=== PATIENT | female | born 1955 | race Caucasian/White ===

== ENCOUNTER → 2019-04-05 | Outpatient (CLI) | payer OTHER, MEDICAID ==
--- NOTE | 2019-04-05 15:08 | REP ---
Chest two views HISTORY: Bronchitis Comparison: None The lungs are clear. The heart is normal in size. The pulmonary vasculature is normal in appearance. The bony structure is intact. IMPRESSION: No acute disease. Electronically Signed by Gurpreet Britt MD 04/05/2019 02:59 P
== END ==
LOC: M LRY 14:29
PROVIDERS: ATTEND Physician Assistant
DX: J40 Bronchitis, not specified as acute or chronic (principal)

== ENCOUNTER 2022-05-02 15:46 | Observation (INO) | payer MEDICAID, OTHER ==
[~2022-05-02] VITALS: Ht 162.6 cm; Wt 55.1 kg
[2022-05-02 17:23] LABS: ALBUMIN 3.8 GM/DL (3.2-5.2); ALT/SGPT 25 U/L (12-78); BILIRUBIN,DIRECT < 0.1 MG/DL (0.0-0.2); BILIRUBIN,TOTAL 0.4 MG/DL (0.2-1.0); BLOOD UREA NITROGEN 17 MG/DL (7-18); CALCIUM LEVEL 9.3 MG/DL (8.8-10.2); CARBON DIOXIDE LEVEL 31 MEQ/L (21-32); CHLORIDE LEVEL 106 MEQ/L (98-107); CREATININE FOR GFR 1.02 MG/DL (0.55-1.30); GLOMERULAR FILTRATION RATE 57.7 (>45); GLUCOSE, FASTING 137 MG/DL (70-100); SODIUM LEVEL 143 MEQ/L (136-145); TOTAL PROTEIN 6.9 GM/DL (6.4-8.2)
[2022-05-02 17:33] LABS: CK-MB VALUE MASS < 1.0 NG/ML (<3.6); CPK CREATINE PHOSPHOKINASE 68 U/L (26-192); MB/CK RELATIVE INDEX 1.47 (< OR =4)
[2022-05-02 17:39] LABS: INR 0.9; PARTIAL THROMBOPLASTIN TIME 29.2 SECONDS (25.9-37.0); PROTHROMBIN TIME 12.5 SECONDS (12.7-14.5)
[2022-05-02 17:48] LABS: BASO % 0.6 % (0.0-1.0); EOS # 0.2 10^3/uL (0.0-0.5); EOS % 2.3 % (0.0-3.0); HEMATOCRIT 45.4 % (36.0-47.0); HEMOGLOBIN 14.9 g/dl (12.0-15.5); LYMPH % 28.7 % (24.0-44.0); MEAN CORPUSCULAR HEMOGLOBIN 30.3 pg (27.0-33.0); MEAN CORPUSCULAR HGB CONC 32.8 g/dl (32.0-36.5); MEAN CORPUSCULAR VOLUME 92.5 fl (80.0-96.0); MONO # 0.7 10^3/uL (0.0-0.8); NEUTROPHILS % 58.1 % (36.0-66.0); PLATELET COUNT, AUTOMATED 146 10^3/uL (150-450); RED BLOOD COUNT 4.91 10^6/uL (4.00-5.40); WHITE BLOOD COUNT 6.9 10^3/uL (4.0-10.0)
[2022-05-02 18:17] LABS: RSV AMPLIFICATION NEGATIVE (NEGATIVE)
[2022-05-02 18:30] LABS: CK-MB VALUE MASS 1.3 NG/ML (<3.6); MB/CK RELATIVE INDEX 1.23 (< OR =4)
[2022-05-02] MEDS ORDERED: GLUCOSE 4GM CHEW TABLET PO PRN (19:25)
[2022-05-02] MEDS ORDERED: MAALOX 30 ML SUSP *UDC PO PRN (19:25)
[2022-05-02] MEDS ORDERED: GLUCAGON INJ 1MG VIAL SC PRN (19:25)
[2022-05-02] MEDS ORDERED: DEXTROSE 50% 50 ML SYRINGE IV PRN (19:25)
[2022-05-02] MEDS ORDERED: ACETAMINOPHEN TAB 650MG DOSE (2X325MG) PO PRN (19:25)
[2022-05-02] MEDS ORDERED: MOM 30ML SUSPENSION UDC PO PRN (19:25)
[2022-05-02] MEDS ORDERED: NICOTINE 21MG/24HR 1 EA TRANSDERMAL TD PRN (19:30)
[2022-05-02] MEDS ORDERED: PATIENT COMMENT (20:34)
[2022-05-02] MEDS ORDERED: LISI10TA22 PO (20:34)
[2022-05-02] MEDS ORDERED: IBAN150T6 PO (20:34)
[2022-05-02] MEDS ORDERED: ATOR40TA75 PO (20:34)
[2022-05-02] MEDS ORDERED: OMEP-173 PO (20:34)
[2022-05-02] MEDS ORDERED: METF500T13 PO (20:34)
[2022-05-02] MEDS ORDERED: HOME MED LIST COMPLETE! XX SCH (20:35)
[2022-05-02] MEDS ORDERED: ATORVASTATIN 20 MG TAB PO SCH (21:00)
[2022-05-02] MEDS: INSULIN LISPRO (NovoLOG) PER UNIT SC SCH (21:00)
[2022-05-03 00:38] VITALS: BP 137/78
[2022-05-03 06:00] VITALS: BP 133/77
[2022-05-03 06:51] LABS: HEMATOCRIT 44.6 % (36.0-47.0); HEMOGLOBIN 14.6 g/dl (12.0-15.5); MEAN CORPUSCULAR HEMOGLOBIN 30.3 pg (27.0-33.0); MEAN CORPUSCULAR HGB CONC 32.7 g/dl (32.0-36.5); MEAN CORPUSCULAR VOLUME 92.5 fl (80.0-96.0); PLATELET COUNT, AUTOMATED 124 10^3/uL (150-450); RED BLOOD COUNT 4.82 10^6/uL (4.00-5.40); WHITE BLOOD COUNT 8.1 10^3/uL (4.0-10.0)
[2022-05-03 07:17] LABS: BLOOD UREA NITROGEN 15 MG/DL (7-18); CALCIUM LEVEL 8.9 MG/DL (8.8-10.2); CARBON DIOXIDE LEVEL 30 MEQ/L (21-32); CHLORIDE LEVEL 107 MEQ/L (98-107); CHOLESTEROL LEVEL 200 MG/DL (<200); CHOLESTEROL RISK RATIO 2.666 (<5); CREATININE FOR GFR 0.85 MG/DL (0.55-1.30); GLOMERULAR FILTRATION RATE > 60.0 (>45); GLUCOSE, FASTING 105 MG/DL (70-100); HDL CHOLESTEROL 75 MG/DL (>40); LDL CHOLESTEROL 98 MG/DL (<100); MAGNESIUM LEVEL 1.7 MG/DL (1.8-2.4); NON-HDL-C 125 MG/DL; POTASSIUM SERUM 3.9 MEQ/L (3.5-5.1); SODIUM LEVEL 142 MEQ/L (136-145); TRIGLYCERIDES LEVEL 136 MG/DL (<150)
[2022-05-03 07:24] LABS: HEMOGLOBIN A1c 6.1 %
[2022-05-03 07:30] LABS: CK-MB VALUE MASS 1.3 NG/ML (<3.6); MB/CK RELATIVE INDEX 2.28 (< OR =4)
[2022-05-03] MEDS: INSULIN LISPRO (NovoLOG) PER UNIT SC SCH ×4 (07:30→20:54)
[2022-05-03] MEDS ORDERED: OMEPRAZOLE 20MG CAP PO SCH (09:00)
[2022-05-03] MEDS: ASPIRIN 81 MG CHEW TABLET PO SCH (09:19)
[2022-05-03] MEDS: CLOPIDOGREL 75 MG TAB PO SCH (11:16)
[2022-05-03 12:51] LABS: CK-MB VALUE MASS < 1.0 NG/ML (<3.6); CPK CREATINE PHOSPHOKINASE 55 U/L (26-192); MB/CK RELATIVE INDEX 1.82 (< OR =4)
[2022-05-03 14:00] VITALS: BP 118/67
[2022-05-03] MEDS ORDERED: MAG SULF 1GM/100ML (MAG RUN) 1 GM in IV 1 EA IV ONE (15:55)
[2022-05-03] MEDS ORDERED: ATORVASTATIN 20 MG TAB PO SCH (21:00)
[2022-05-03 22:00] VITALS: BP 116/68
[2022-05-04 06:00] VITALS: BP 122/68
[2022-05-04 07:07] LABS: HEMATOCRIT 41.1 % (36.0-47.0); MEAN CORPUSCULAR HEMOGLOBIN 31.3 pg (27.0-33.0); MEAN CORPUSCULAR HGB CONC 34.1 g/dl (32.0-36.5); MEAN CORPUSCULAR VOLUME 91.7 fl (80.0-96.0); PLATELET COUNT, AUTOMATED 114 10^3/uL (150-450); RED BLOOD COUNT 4.48 10^6/uL (4.00-5.40); WHITE BLOOD COUNT 7.7 10^3/uL (4.0-10.0)
[2022-05-04 07:30] LABS: BLOOD UREA NITROGEN 17 MG/DL (7-18); CALCIUM LEVEL 8.7 MG/DL (8.8-10.2); CARBON DIOXIDE LEVEL 27 MEQ/L (21-32); CHLORIDE LEVEL 109 MEQ/L (98-107); CREATININE FOR GFR 0.81 MG/DL (0.55-1.30); GLOMERULAR FILTRATION RATE > 60.0 (>45); GLUCOSE, FASTING 108 MG/DL (70-100); POTASSIUM SERUM 3.9 MEQ/L (3.5-5.1); SODIUM LEVEL 143 MEQ/L (136-145)
[2022-05-04 07:35] LABS: CK-MB VALUE MASS < 1.0 NG/ML (<3.6); CPK CREATINE PHOSPHOKINASE 58 U/L (26-192); MB/CK RELATIVE INDEX 1.72 (< OR =4)
[2022-05-04] MEDS: CLOPIDOGREL 75 MG TAB PO SCH (08:38)
[2022-05-04] MEDS: INSULIN LISPRO (NovoLOG) PER UNIT SC SCH (08:38)
[2022-05-04] MEDS: ASPIRIN 81 MG CHEW TABLET PO SCH (08:38)
[2022-05-04 08:39] VITALS: BP 126/70
[2022-05-04] MEDS ORDERED: PANTOPRAZOLE 40MG TAB (PROTONIX) PO SCH (09:00)
[2022-05-04] MEDS ORDERED: ASPI81CH8 PO (09:02)
[2022-05-04] MEDS ORDERED: CLOP75TA2 PO (09:02)
[2022-05-04] MEDS ORDERED: ATOR1TAB21 PO (09:02)
== END 2022-05-04 11:52 | disposition home health service (06) ==
LOC: M ED 15:46 → M ED INP 19:23 → ENRESERV 22:06 → M MSPAV 05-03 00:30
PROVIDERS: ADMIT Internal Medicine; ATTEND Internal Medicine
DX: I63.512 Cerebral infarction due to unspecified occlusion or stenosis of left middle cerebral artery (principal); R77.8 Other specified abnormalities of plasma proteins; I34.2 Nonrheumatic mitral (valve) stenosis; E11.9 Type 2 diabetes mellitus without complications; E78.5 Hyperlipidemia, unspecified; I10 Essential (primary) hypertension; K21.9 Gastro-esophageal reflux disease without esophagitis; Z86.73 Personal history of transient ischemic attack (TIA), and cerebral infarction without residual deficits; F17.210 Nicotine dependence, cigarettes, uncomplicated; Z79.899 Other long term (current) drug therapy; Z79.84 Long term (current) use of oral hypoglycemic drugs; Z82.49 Family history of ischemic heart disease and other diseases of the circulatory system
CPT/HCPCS: 36415; 70450; 70544; 70551; 71045; 80048; 80061; 80076; 82550; 82553; 83036; 83735; 85025; 85027; 85610; 85730; 86850; 86900; 86901; 87631; 92526; 92610; 93005; 93041; 93306; 93880; 94760; 97161; 99285; J1815; J3475

== ENCOUNTER 2023-03-24 12:47 | Inpatient (IN) | payer MEDICARE, MEDICAID ==
[~2023-03-24] VITALS: Ht 165.1 cm; Wt 61.8 kg
[~2023-03-24 12:47] MED LIST: ASPI81CH8 PO; ATOR1TAB21 PO; ATOR40TA75 PO; CLOP75TA2 PO; IBAN150T6 PO; LISI10TA22 PO; METF500T13 PO; OMEP-173 PO; PATIENT COMMENT
[2023-03-24 13:40] LABS: HEMATOCRIT 43.9 % (36.0-47.0); HEMOGLOBIN 14.8 g/dl (12.0-15.5); MEAN CORPUSCULAR HEMOGLOBIN 30.5 pg (27.0-33.0); MEAN CORPUSCULAR HGB CONC 33.7 g/dl (32.0-36.5); MEAN CORPUSCULAR VOLUME 90.3 fl (80.0-96.0); PLATELET COUNT, AUTOMATED 101 10^3/uL (150-450); RED BLOOD COUNT 4.86 10^6/uL (4.00-5.40); WHITE BLOOD COUNT 7.7 10^3/uL (4.0-10.0)
[2023-03-24 14:12] LABS: BLOOD UREA NITROGEN 12 MG/DL (9-23); CALCIUM LEVEL 9.5 MG/DL (8.3-10.6); CARBON DIOXIDE LEVEL 27 MMOL/L (20-31); CHLORIDE LEVEL 103 MMOL/L (98-107); CREATININE FOR GFR 0.75 MG/DL (0.55-1.30); GLOMERULAR FILTRATION RATE > 60.0 (>45); GLUCOSE, FASTING 119 MG/DL (74-106); POTASSIUM SERUM 3.8 MMOL/L (3.5-5.1); SODIUM LEVEL 140 MMOL/L (136-145)
[2023-03-24] MEDS ORDERED: ISOVUE-370 76% 100ML VIAL As Ordered ONE (16:21)
[2023-03-24 16:32] LABS: INR 0.91; PROTHROMBIN TIME 12.5 SECONDS (12.5-14.5)
[2023-03-24 16:33] LABS: PARTIAL THROMBOPLASTIN TIME 36.5 SECONDS (24.8-34.2)
[2023-03-24] MEDS ORDERED: CLOPIDOGREL 75 MG TAB PO ONE (16:55)
[2023-03-24 17:43] VITALS: BP 115/55; TEMP 97; O2SAT 93
[2023-03-24] MEDS ORDERED: ATOR80TA59 PO (17:44)
[2023-03-24] MEDS ORDERED: ASPI81TA26 PO (17:44)
[2023-03-24] MEDS ORDERED: NIAC500T64 PO (17:44)
[2023-03-24] MEDS ORDERED: PRIL20TA2 PO (17:44)
[2023-03-24] MEDS ORDERED: CALTTAB6 PO (17:48)
[2023-03-24] MEDS ORDERED: HOME MED LIST COMPLETE! XX SCH (17:50)
[2023-03-24] MEDS ORDERED: NS 1,000 ML IV ONE (18:15)
[2023-03-24 20:00] VITALS: BP 120/61; TEMP 96.3; O2SAT 96
[2023-03-24] MEDS: ASPIRIN 81MG ENTERIC TABLET PO SCH (21:19)
[2023-03-24] MEDS: ATORVASTATIN 20 MG TAB PO SCH (21:19)
[2023-03-24 23:48] VITALS: BP 113/59; TEMP 96.8; O2SAT 95
[2023-03-25] VITALS (8 sets, daily range): BP systolic 110–138; BP diastolic 56–68; TEMP 96.5–97.7; O2SAT 92–95
[2023-03-25] MEDS ORDERED: NS 500 ML IV ONE ×2 (05:00→12:25)
[2023-03-25 06:07] LABS: BASO % 0.4 % (0.0-1.0); EOS # 0.1 10^3/uL (0.0-0.5); EOS % 0.7 % (0.0-3.0); HEMATOCRIT 40.9 % (36.0-47.0); HEMOGLOBIN 13.8 g/dl (12.0-15.5); LYMPH # 1.6 10^3/uL (1.5-5.0); LYMPH % 19.3 % (24.0-44.0); MEAN CORPUSCULAR HEMOGLOBIN 31.1 pg (27.0-33.0); MEAN CORPUSCULAR HGB CONC 33.7 g/dl (32.0-36.5); MEAN CORPUSCULAR VOLUME 92.1 fl (80.0-96.0); MONO # 0.7 10^3/uL (0.0-0.8); MONO % 7.8 % (2.0-8.0); NEUTROPHILS % 71.4 % (36.0-66.0); PLATELET COUNT, AUTOMATED 102 10^3/uL (150-450); RED BLOOD COUNT 4.44 10^6/uL (4.00-5.40); WHITE BLOOD COUNT 8.4 10^3/uL (4.0-10.0)
[2023-03-25 06:25] LABS: BLOOD UREA NITROGEN 9 MG/DL (9-23); CALCIUM LEVEL 8.8 MG/DL (8.3-10.6); CARBON DIOXIDE LEVEL 26 MMOL/L (20-31); CHLORIDE LEVEL 106 MMOL/L (98-107); CREATININE FOR GFR 0.78 MG/DL (0.55-1.30); GLOMERULAR FILTRATION RATE > 60.0 (>45); GLUCOSE, FASTING 98 MG/DL (74-106); POTASSIUM SERUM 3.9 MMOL/L (3.5-5.1); SODIUM LEVEL 141 MMOL/L (136-145)
[2023-03-25] MEDS: CLOPIDOGREL 75 MG TAB PO SCH (08:05)
[2023-03-25] MEDS: MIDODRINE 5 MG TAB PO SCH ×2 (12:42→16:54)
[2023-03-25] MEDS: NS 1,000 ML IV SCH (16:55)
[2023-03-25] MEDS: ASPIRIN 81MG ENTERIC TABLET PO SCH (21:46)
[2023-03-25] MEDS: ATORVASTATIN 20 MG TAB PO SCH (21:46)
[2023-03-26] VITALS (7 sets, daily range): BP systolic 105–137; BP diastolic 53–88; TEMP 96.8–97.5; O2SAT 94–98
[2023-03-26] MEDS: NS 1,000 ML IV SCH ×2 (03:04→12:00)
[2023-03-26 06:02] LABS: BASO % 0.4 % (0.0-1.0); EOS # 0.1 10^3/uL (0.0-0.5); EOS % 1.1 % (0.0-3.0); HEMATOCRIT 40.6 % (36.0-47.0); HEMOGLOBIN 13.6 g/dl (12.0-15.5); LYMPH # 1.8 10^3/uL (1.5-5.0); LYMPH % 25.4 % (24.0-44.0); MEAN CORPUSCULAR HEMOGLOBIN 30.8 pg (27.0-33.0); MEAN CORPUSCULAR HGB CONC 33.5 g/dl (32.0-36.5); MEAN CORPUSCULAR VOLUME 91.9 fl (80.0-96.0); MONO # 0.7 10^3/uL (0.0-0.8); MONO % 10.1 % (2.0-8.0); NEUTROPHILS # 4.5 10^3/uL (1.5-8.5); NEUTROPHILS % 62.7 % (36.0-66.0); RED BLOOD COUNT 4.42 10^6/uL (4.00-5.40); WHITE BLOOD COUNT 7.1 10^3/uL (4.0-10.0)
[2023-03-26 06:18] LABS: BLOOD UREA NITROGEN 8 MG/DL (9-23); CALCIUM LEVEL 8.1 MG/DL (8.3-10.6); CARBON DIOXIDE LEVEL 27 MMOL/L (20-31); CHLORIDE LEVEL 109 MMOL/L (98-107); CREATININE FOR GFR 0.85 MG/DL (0.55-1.30); GLOMERULAR FILTRATION RATE > 60.0 (>45); GLUCOSE, FASTING 104 MG/DL (74-106); POTASSIUM SERUM 3.8 MMOL/L (3.5-5.1); SODIUM LEVEL 143 MMOL/L (136-145)
[2023-03-26 06:44] LABS: PLATELET COUNT, AUTOMATED 97 10^3/uL (150-450)
[2023-03-26] MEDS: CLOPIDOGREL 75 MG TAB PO SCH (08:26)
[2023-03-26] MEDS: MIDODRINE 5 MG TAB PO SCH ×3 (08:26→16:00)
[2023-03-26] MEDS: ATORVASTATIN 20 MG TAB PO SCH (22:52)
[2023-03-26] MEDS: ASPIRIN 81MG ENTERIC TABLET PO SCH (22:52)
[2023-03-27] VITALS (7 sets, daily range): BP systolic 129–154; BP diastolic 67–82; TEMP 97.2–97.7; O2SAT 93–98
[2023-03-27] MEDS: NS 1,000 ML IV SCH ×2 (02:40→09:07)
[2023-03-27 04:51] LABS: BASO % 0.4 % (0.0-1.0); EOS # 0.3 10^3/uL (0.0-0.5); EOS % 3.3 % (0.0-3.0); HEMATOCRIT 40.4 % (36.0-47.0); HEMOGLOBIN 13.7 g/dl (12.0-15.5); LYMPH # 2.2 10^3/uL (1.5-5.0); LYMPH % 26.1 % (24.0-44.0); MEAN CORPUSCULAR HEMOGLOBIN 30.8 pg (27.0-33.0); MEAN CORPUSCULAR HGB CONC 33.9 g/dl (32.0-36.5); MEAN CORPUSCULAR VOLUME 90.8 fl (80.0-96.0); MONO # 0.9 10^3/uL (0.0-0.8); MONO % 10.5 % (2.0-8.0); NEUTROPHILS # 5.1 10^3/uL (1.5-8.5); NEUTROPHILS % 59.5 % (36.0-66.0); RED BLOOD COUNT 4.45 10^6/uL (4.00-5.40); WHITE BLOOD COUNT 8.5 10^3/uL (4.0-10.0)
[2023-03-27 05:19] LABS: PLATELET COUNT, AUTOMATED 97 10^3/uL (150-450)
[2023-03-27 05:26] LABS: BLOOD UREA NITROGEN 9 MG/DL (9-23); CALCIUM LEVEL 8.4 MG/DL (8.3-10.6); CARBON DIOXIDE LEVEL 28 MMOL/L (20-31); CHLORIDE LEVEL 108 MMOL/L (98-107); CREATININE FOR GFR 0.75 MG/DL (0.55-1.30); GLOMERULAR FILTRATION RATE > 60.0 (>45); GLUCOSE, FASTING 104 MG/DL (74-106); SODIUM LEVEL 143 MMOL/L (136-145)
[2023-03-27 05:27] LABS: COLLAGEN EPINEPHRINE 127 SECONDS (74-162)
[2023-03-27] MEDS: MIDODRINE 5 MG TAB PO SCH ×3 (08:00→16:00)
[2023-03-27 08:05] LABS: CHOLESTEROL LEVEL 152 MG/DL (<200); CHOLESTEROL RISK RATIO 2.34 (<5); HDL CHOLESTEROL 64.9 MG/DL (>40); LDL CHOLESTEROL 68.5 MG/DL (<100); NON-HDL-C 87.1 MG/DL; TRIGLYCERIDES LEVEL 93 MG/DL (<150)
[2023-03-27] MEDS: CLOPIDOGREL 75 MG TAB PO SCH (09:03)
[2023-03-27] MEDS: ATORVASTATIN 20 MG TAB PO SCH (20:16)
[2023-03-27] MEDS: ASPIRIN 81MG ENTERIC TABLET PO SCH (20:16)
[2023-03-28 05:43] VITALS: BP 137/83; TEMP 97.5; O2SAT 94
[2023-03-28 06:09] LABS: BASO % 0.2 % (0.0-1.0); EOS # 0.3 10^3/uL (0.0-0.5); HEMATOCRIT 40.8 % (36.0-47.0); HEMOGLOBIN 13.3 g/dl (12.0-15.5); LYMPH # 1.9 10^3/uL (1.5-5.0); LYMPH % 19.5 % (24.0-44.0); MEAN CORPUSCULAR HEMOGLOBIN 30.1 pg (27.0-33.0); MEAN CORPUSCULAR HGB CONC 32.6 g/dl (32.0-36.5); MEAN CORPUSCULAR VOLUME 92.3 fl (80.0-96.0); MONO # 0.9 10^3/uL (0.0-0.8); MONO % 9.7 % (2.0-8.0); NEUTROPHILS # 6.5 10^3/uL (1.5-8.5); NEUTROPHILS % 67.3 % (36.0-66.0); PLATELET COUNT, AUTOMATED 114 10^3/uL (150-450); RED BLOOD COUNT 4.42 10^6/uL (4.00-5.40); WHITE BLOOD COUNT 9.7 10^3/uL (4.0-10.0)
[2023-03-28 06:32] LABS: BLOOD UREA NITROGEN 9 MG/DL (9-23); CALCIUM LEVEL 8.9 MG/DL (8.3-10.6); CARBON DIOXIDE LEVEL 30 MMOL/L (20-31); CHLORIDE LEVEL 106 MMOL/L (98-107); CREATININE FOR GFR 0.76 MG/DL (0.55-1.30); GLOMERULAR FILTRATION RATE > 60.0 (>45); GLUCOSE, FASTING 98 MG/DL (74-106); POTASSIUM SERUM 3.8 MMOL/L (3.5-5.1); SODIUM LEVEL 143 MMOL/L (136-145)
[2023-03-28 06:34] LABS: FOLATE 13.58 NG/ML (>5.4)
[2023-03-28 07:06] LABS: HEPATITIS C VIRUS ABY INDEX 0.1 INDEX (<0.8)
[2023-03-28] MEDS: CYANOCOBALAMIN 1,000MCG/ML 1ML VIAL IM SCH (10:19)
[2023-03-28] MEDS: CLOPIDOGREL 75 MG TAB PO SCH (10:19)
[2023-03-28 14:00] VITALS: BP 101/76; TEMP 98.1; O2SAT 96
[2023-03-28] MEDS: ASPIRIN 81MG ENTERIC TABLET PO SCH (20:21)
[2023-03-28] MEDS: ATORVASTATIN 20 MG TAB PO SCH (20:21)
[2023-03-29 06:00] VITALS: BP 106/68; TEMP 97.9; O2SAT 93
[2023-03-29 06:26] LABS: BASO % 0.5 % (0.0-1.0); EOS # 0.3 10^3/uL (0.0-0.5); EOS % 4.5 % (0.0-3.0); HEMATOCRIT 40.1 % (36.0-47.0); HEMOGLOBIN 13.5 g/dl (12.0-15.5); LYMPH % 26.9 % (24.0-44.0); MEAN CORPUSCULAR HEMOGLOBIN 30.4 pg (27.0-33.0); MEAN CORPUSCULAR HGB CONC 33.7 g/dl (32.0-36.5); MEAN CORPUSCULAR VOLUME 90.3 fl (80.0-96.0); MONO # 0.9 10^3/uL (0.0-0.8); MONO % 12.3 % (2.0-8.0); NEUTROPHILS # 4.1 10^3/uL (1.5-8.5); NEUTROPHILS % 55.4 % (36.0-66.0); PLATELET COUNT, AUTOMATED 111 10^3/uL (150-450); RED BLOOD COUNT 4.44 10^6/uL (4.00-5.40); WHITE BLOOD COUNT 7.3 10^3/uL (4.0-10.0)
[2023-03-29 06:56] LABS: BLOOD UREA NITROGEN 12 MG/DL (9-23); CALCIUM LEVEL 8.9 MG/DL (8.3-10.6); CARBON DIOXIDE LEVEL 29 MMOL/L (20-31); CHLORIDE LEVEL 105 MMOL/L (98-107); CREATININE FOR GFR 0.69 MG/DL (0.55-1.30); GLOMERULAR FILTRATION RATE > 60.0 (>45); GLUCOSE, FASTING 101 MG/DL (74-106); POTASSIUM SERUM 3.9 MMOL/L (3.5-5.1); SODIUM LEVEL 140 MMOL/L (136-145)
[2023-03-29] MEDS: CYANOCOBALAMIN 1,000MCG/ML 1ML VIAL IM SCH (10:24)
[2023-03-29] MEDS: CLOPIDOGREL 75 MG TAB PO SCH (10:25)
[2023-03-29] MEDS: WARFARIN SOD 5MG TAB PO SCH (17:57)
[2023-03-29] MEDS: ATORVASTATIN 20 MG TAB PO SCH (20:43)
[2023-03-29] MEDS: ASPIRIN 81MG ENTERIC TABLET PO SCH (20:43)
[2023-03-30 06:00] VITALS: BP 105/66; TEMP 97.9; O2SAT 92
[2023-03-30 06:22] LABS: BASO % 0.4 % (0.0-1.0); EOS # 0.2 10^3/uL (0.0-0.5); EOS % 3.2 % (0.0-3.0); HEMATOCRIT 39.2 % (36.0-47.0); HEMOGLOBIN 13.3 g/dl (12.0-15.5); LYMPH % 27.7 % (24.0-44.0); MEAN CORPUSCULAR HGB CONC 33.9 g/dl (32.0-36.5); MEAN CORPUSCULAR VOLUME 91.4 fl (80.0-96.0); MONO # 0.9 10^3/uL (0.0-0.8); MONO % 12.4 % (2.0-8.0); PLATELET COUNT, AUTOMATED 130 10^3/uL (150-450); RED BLOOD COUNT 4.29 10^6/uL (4.00-5.40); WHITE BLOOD COUNT 7.2 10^3/uL (4.0-10.0)
[2023-03-30 06:54] LABS: BLOOD UREA NITROGEN 11 MG/DL (9-23); CALCIUM LEVEL 8.6 MG/DL (8.3-10.6); CARBON DIOXIDE LEVEL 31 MMOL/L (20-31); CHLORIDE LEVEL 105 MMOL/L (98-107); CREATININE FOR GFR 0.66 MG/DL (0.55-1.30); GLOMERULAR FILTRATION RATE > 60.0 (>45); GLUCOSE, FASTING 94 MG/DL (74-106); POTASSIUM SERUM 3.9 MMOL/L (3.5-5.1); SODIUM LEVEL 142 MMOL/L (136-145)
[2023-03-30] MEDS: CYANOCOBALAMIN 1,000MCG/ML 1ML VIAL IM SCH (09:45)
[2023-03-30] MEDS: WARFARIN SOD 5MG TAB PO SCH (16:47)
[2023-03-30] MEDS: ASPIRIN 81MG ENTERIC TABLET PO SCH (20:27)
[2023-03-30] MEDS: ATORVASTATIN 20 MG TAB PO SCH (20:27)
[2023-03-31 06:00] VITALS: BP 112/65; TEMP 97.9; O2SAT 94
[2023-03-31 06:10] LABS: BASO % 0.4 % (0.0-1.0); EOS # 0.2 10^3/uL (0.0-0.5); EOS % 2.3 % (0.0-3.0); HEMATOCRIT 40.7 % (36.0-47.0); HEMOGLOBIN 13.4 g/dl (12.0-15.5); LYMPH # 1.6 10^3/uL (1.5-5.0); LYMPH % 20.5 % (24.0-44.0); MEAN CORPUSCULAR HEMOGLOBIN 30.4 pg (27.0-33.0); MEAN CORPUSCULAR HGB CONC 32.9 g/dl (32.0-36.5); MEAN CORPUSCULAR VOLUME 92.3 fl (80.0-96.0); MONO # 0.9 10^3/uL (0.0-0.8); MONO % 10.8 % (2.0-8.0); NEUTROPHILS # 5.2 10^3/uL (1.5-8.5); NEUTROPHILS % 65.6 % (36.0-66.0); PLATELET COUNT, AUTOMATED 136 10^3/uL (150-450); RED BLOOD COUNT 4.41 10^6/uL (4.00-5.40); WHITE BLOOD COUNT 7.9 10^3/uL (4.0-10.0)
[2023-03-31 06:21] LABS: INR 1.15; PROTHROMBIN TIME 14.9 SECONDS (12.5-14.5)
[2023-03-31 06:22] LABS: PARTIAL THROMBOPLASTIN TIME 32.5 SECONDS (24.8-34.2)
[2023-03-31 07:40] LABS: BLOOD UREA NITROGEN 11 MG/DL (9-23); CALCIUM LEVEL 8.5 MG/DL (8.3-10.6); CARBON DIOXIDE LEVEL 29 MMOL/L (20-31); CHLORIDE LEVEL 105 MMOL/L (98-107); GLOMERULAR FILTRATION RATE > 60.0 (>45); GLUCOSE, FASTING 107 MG/DL (74-106); POTASSIUM SERUM 4.3 MMOL/L (3.5-5.1); SODIUM LEVEL 140 MMOL/L (136-145)
[2023-03-31] MEDS: CYANOCOBALAMIN 500 MCG TAB PO SCH (08:23)
[2023-03-31 13:07] LABS: ANTINUCLEAR ANTIBODIES DIRECT Negative (Negative); HLA CLASS 1 ANTIBODY Negative (Negative); IIb/IIIa ANTIBODY Negative (Negative); Ia/IIa ANTIBODY Negative (Negative); Ib/IX ANTIBODY Negative (Negative)
[2023-03-31] MEDS: WARFARIN SOD 5MG TAB PO SCH (17:54)
[2023-03-31] MEDS: ASPIRIN 81MG ENTERIC TABLET PO SCH (20:14)
[2023-03-31] MEDS: ATORVASTATIN 20 MG TAB PO SCH (20:14)
[2023-04-01 05:35] VITALS: BP 129/84; TEMP 98.1; O2SAT 90
[2023-04-01 06:51] LABS: INR 1.5; PROTHROMBIN TIME 18.4 SECONDS (12.5-14.5)
[2023-04-01] MEDS: CYANOCOBALAMIN 500 MCG TAB PO SCH (09:48)
[2023-04-01] MEDS ORDERED: VITA500T40 PO (12:10)
[2023-04-01] MEDS ORDERED: JANT5TAB PO (12:10)
== END 2023-04-01 14:20 | disposition home health service (06) | DRG 65 ==
LOC: EDBD 12:47 → M ED 12:47 → M ED INP 13:48 → ENRESERV 15:56 → M PCU 17:40 → M MSPAV 03-27 16:37
PROVIDERS: ADMIT Internal Medicine Nephrology; ATTEND Internal Medicine
PROC: B246ZZZ Ultrasonography of Right and Left Heart (ICD-10-PCS; principal; 2023-03-29)
DX: I63.522 Cerebral infarction due to unspecified occlusion or stenosis of left anterior cerebral artery (principal); I69.354 Hemiplegia and hemiparesis following cerebral infarction affecting left non-dominant side; I50.32 Chronic diastolic (congestive) heart failure; G81.91 Hemiplegia, unspecified affecting right dominant side; E11.9 Type 2 diabetes mellitus without complications; I11.0 Hypertensive heart disease with heart failure; E78.5 Hyperlipidemia, unspecified; F17.200 Nicotine dependence, unspecified, uncomplicated; M81.0 Age-related osteoporosis without current pathological fracture; D69.6 Thrombocytopenia, unspecified; K21.9 Gastro-esophageal reflux disease without esophagitis; M21.371 Foot drop, right foot; R47.1 Dysarthria and anarthria; R47.01 Aphasia; G51.0 Bell's palsy; G21.4 Vascular parkinsonism; F01.50 Vascular dementia, unspecified severity, without behavioral disturbance, psychotic disturbance, mood disturbance, and anxiety; I05.0 Rheumatic mitral stenosis; T45.526A Underdosing of antithrombotic drugs, initial encounter; Z91.128 Patient's intentional underdosing of medication regimen for other reason; Z79.82 Long term (current) use of aspirin; Z79.02 Long term (current) use of antithrombotics/antiplatelets; Z79.84 Long term (current) use of oral hypoglycemic drugs; Z79.899 Other long term (current) drug therapy

== ENCOUNTER → 2023-04-03 | Outpatient (CLI) | payer MEDICARE, OTHER ==
[~2023-04-03] MED LIST changes: +ASPI81TA26 PO; +ATOR80TA59 PO; +CALTTAB6 PO; +JANT5TAB PO; +NIAC500T64 PO; +PRIL20TA2 PO; +VITA500T40 PO
[2023-04-03 12:26] LABS: INR 2.51; PROTHROMBIN TIME 27.5 SECONDS (12.5-14.5)
== END ==
LOC: M LAB 11:03
PROVIDERS: ATTEND Family Medicine
DX: Z79.01 Long term (current) use of anticoagulants (principal)

== ENCOUNTER → 2023-04-30 | Outpatient (REF) | payer MEDICARE, MEDICAID ==
[2023-04-30 14:56] LABS: INR 1.16
== END ==
LOC: M LAB REF 14:23
PROVIDERS: ATTEND Family Medicine
DX: Z79.01 Long term (current) use of anticoagulants (principal)

== ENCOUNTER → 2023-05-27 | Outpatient (REF) | payer MEDICARE, MEDICAID, OTHER ==
[2023-05-27 17:32] LABS: INR 0.93; PROTHROMBIN TIME 12.7 SECONDS (12.5-14.5)
== END ==
LOC: M SHH 16:12
PROVIDERS: ATTEND Family Medicine
DX: Z79.01 Long term (current) use of anticoagulants (principal)

== ENCOUNTER → 2023-06-16 | Outpatient (REF) | payer MEDICARE, MEDICAID, OTHER ==
[2023-06-16 17:44] LABS: INR 3.33
== END ==
LOC: M WUC 16:15
PROVIDERS: ATTEND Family Medicine
DX: Z79.01 Long term (current) use of anticoagulants (principal)

== ENCOUNTER → 2023-06-24 | Outpatient (REF) | payer OTHER, MEDICAID ==
[2023-06-24 18:09] LABS: INR 3.72
== END ==
LOC: M LABWUC 16:12
PROVIDERS: ATTEND Family Medicine
DX: Z79.01 Long term (current) use of anticoagulants (principal)

== ENCOUNTER → 2023-07-10 | Outpatient (REF) | payer OTHER, MEDICAID ==
[2023-07-10 18:05] LABS: INR 1.35; PROTHROMBIN TIME 16.3 SECONDS (12.5-14.5)
== END ==
LOC: M SFHCLERA 16:30
PROVIDERS: ATTEND Family Medicine
DX: Z79.01 Long term (current) use of anticoagulants (principal)

== ENCOUNTER → 2023-08-26 | Outpatient (REF) | payer OTHER, MEDICAID ==
[2023-08-26 17:12] LABS: INR 3.48; PROTHROMBIN TIME 33.7 SECONDS (12.5-14.5)
== END ==
LOC: M LABWUC 16:10
PROVIDERS: ATTEND Family Medicine
DX: Z79.01 Long term (current) use of anticoagulants (principal)

== ENCOUNTER → 2023-10-07 | Outpatient (REF) | payer OTHER, MEDICAID ==
[2023-10-07 16:44] LABS: INR 3.81; PROTHROMBIN TIME 36.1 SECONDS (12.5-14.5)
== END ==
LOC: M LABWUC 16:10
PROVIDERS: ATTEND Family Medicine
DX: Z79.01 Long term (current) use of anticoagulants (principal)

== ENCOUNTER → 2023-10-14 | Outpatient (REF) | payer OTHER, MEDICAID ==
[2023-10-14 16:56] LABS: PROTHROMBIN TIME 46.3 SECONDS (12.5-14.5)
[2023-10-14 18:26] LABS: INR 5.26
== END ==
LOC: M LABWUC 16:12
PROVIDERS: ATTEND Family Medicine
DX: Z79.01 Long term (current) use of anticoagulants (principal)

== ENCOUNTER → 2023-10-28 | Outpatient (REF) | payer OTHER, MEDICAID ==
[2023-10-28 18:04] LABS: INR 2.31; PROTHROMBIN TIME 24.6 SECONDS (12.5-14.5)
== END ==
LOC: M LABWUC 16:24
PROVIDERS: ATTEND Family Medicine
DX: Z79.01 Long term (current) use of anticoagulants (principal)

== ENCOUNTER → 2023-11-18 | Outpatient (REF) | payer MEDICARE, MEDICAID ==
[2023-11-18 17:30] LABS: INR 2.29; PROTHROMBIN TIME 24.4 SECONDS (12.5-14.5)
== END ==
LOC: M LABWUC 16:17
PROVIDERS: ATTEND Family Medicine
DX: Z79.01 Long term (current) use of anticoagulants (principal)

== ENCOUNTER → 2023-12-02 | Outpatient (REF) | payer OTHER, MEDICAID ==
[2023-12-02 16:42] LABS: INR 1.45; PROTHROMBIN TIME 17.2 SECONDS (12.5-14.5)
== END ==
LOC: M LABWUC 16:11
PROVIDERS: ATTEND Family Medicine
DX: Z79.01 Long term (current) use of anticoagulants (principal)

== ENCOUNTER → 2023-12-23 | Outpatient (REF) | payer OTHER, MEDICAID ==
[2023-12-23 17:12] LABS: INR 2.64; PROTHROMBIN TIME 27.3 SECONDS (12.5-14.5)
== END ==
LOC: M LABWUC 16:10
PROVIDERS: ATTEND Family Medicine
DX: Z79.01 Long term (current) use of anticoagulants (principal)

== ENCOUNTER → 2024-01-06 | Outpatient (REF) | payer OTHER, MEDICAID ==
[2024-01-06 17:27] LABS: INR 2.2; PROTHROMBIN TIME 23.7 SECONDS (12.5-14.5)
== END ==
LOC: M LAB REF 12:55
PROVIDERS: ATTEND Family Medicine
DX: Z79.01 Long term (current) use of anticoagulants (principal)

== ENCOUNTER → 2024-01-21 | Outpatient (REF) | payer OTHER, MEDICAID ==
[2024-01-21 17:47] LABS: INR 1.11
== END ==
LOC: M SFHCLERA 16:10
PROVIDERS: ATTEND Family Medicine
DX: Z79.01 Long term (current) use of anticoagulants (principal)

== ENCOUNTER → 2024-02-03 | Outpatient (REF) | payer OTHER, MEDICAID ==
[2024-02-03 17:28] LABS: INR 3.24; PROTHROMBIN TIME 31.9 SECONDS (12.5-14.5)
== END ==
LOC: M LABWUC 16:19
PROVIDERS: ATTEND Family Medicine
DX: Z79.01 Long term (current) use of anticoagulants (principal)

== ENCOUNTER → 2024-02-18 | Outpatient (REF) | payer OTHER, MEDICAID ==
[2024-02-18 14:58] LABS: INR 1.12
== END ==
LOC: M LABWUC 14:11
PROVIDERS: ATTEND Family Medicine
DX: Z79.01 Long term (current) use of anticoagulants (principal)

== ENCOUNTER → 2024-03-02 | Outpatient (REF) | payer OTHER, MEDICAID ==
[2024-03-02 16:48] LABS: INR 2.22; PROTHROMBIN TIME 23.9 SECONDS (12.5-14.5)
== END ==
LOC: M LABDRAWP 16:11
PROVIDERS: ATTEND Family Medicine
DX: Z79.01 Long term (current) use of anticoagulants (principal)

== ENCOUNTER → 2024-03-16 | Outpatient (REF) | payer OTHER, MEDICAID ==
[2024-03-16 16:48] LABS: INR 1.5; PROTHROMBIN TIME 17.6 SECONDS (12.5-14.5)
== END ==
LOC: M SFHCLERA 16:14
PROVIDERS: ATTEND Family Medicine
DX: Z79.01 Long term (current) use of anticoagulants (principal)

== ENCOUNTER → 2024-03-30 | Outpatient (REF) | payer OTHER, MEDICAID ==
[2024-03-30 17:29] LABS: INR 1.86; PROTHROMBIN TIME 20.8 SECONDS (12.5-14.5)
== END ==
LOC: M SFHCLERA 16:17
PROVIDERS: ATTEND Family Medicine
DX: Z79.01 Long term (current) use of anticoagulants (principal)

== ENCOUNTER → 2024-04-13 | Outpatient (REF) | payer OTHER, MEDICAID ==
[2024-04-13 16:36] LABS: INR 2.1; PROTHROMBIN TIME 22.8 SECONDS (12.5-14.5)
== END ==
LOC: M LABWUC 16:14
PROVIDERS: ATTEND Family Medicine
DX: Z79.01 Long term (current) use of anticoagulants (principal)

== ENCOUNTER → 2024-04-27 | Outpatient (CLI) | payer OTHER, MEDICAID ==
[2024-04-27 17:36] LABS: INR 1.79; PROTHROMBIN TIME 20.2 SECONDS (12.5-14.5)
== END ==
LOC: M WUC 14:03
PROVIDERS: ATTEND Family Medicine
DX: Z79.01 Long term (current) use of anticoagulants (principal)

== ENCOUNTER → 2024-05-11 | Outpatient (REF) | payer OTHER, MEDICAID ==
[2024-05-11 15:03] LABS: INR 1.17; PROTHROMBIN TIME 14.5 SECONDS (12.5-14.5)
== END ==
LOC: M SFHCLERA 12:56
PROVIDERS: ATTEND Family Medicine
DX: Z79.01 Long term (current) use of anticoagulants (principal)

== ENCOUNTER → 2024-05-25 | Outpatient (REF) | payer MEDICARE, MEDICAID ==
[2024-05-25 17:15] LABS: INR 3.36; PROTHROMBIN TIME 32.8 SECONDS (12.5-14.5)
== END ==
LOC: M SFHCLERA 12:44
PROVIDERS: ATTEND Family Medicine
DX: Z79.01 Long term (current) use of anticoagulants (principal)

== ENCOUNTER → 2024-06-08 | Outpatient (REF) | payer MEDICARE, MEDICAID | LOC: M SFHCLERA 16:47 | PROVIDERS: ATTEND Family Medicine | DX: Z53.9 Procedure and treatment not carried out, unspecified reason (principal) ==

== ENCOUNTER → 2024-06-08 | Outpatient (REF) | payer MEDICARE, MEDICAID ==
[2024-06-08 17:09] LABS: INR 2.56; PROTHROMBIN TIME 26.6 SECONDS (12.5-14.5)
== END ==
LOC: M SFHCLERA 16:32
PROVIDERS: ATTEND Family Medicine
DX: Z79.01 Long term (current) use of anticoagulants (principal)

== ENCOUNTER → 2024-06-22 | Outpatient (REF) | payer OTHER, MEDICAID ==
[2024-06-22 17:15] LABS: INR 3.14; PROTHROMBIN TIME 31.1 SECONDS (12.5-14.5)
== END ==
LOC: M SFHCLERA 13:52
PROVIDERS: ATTEND Family Medicine
DX: Z79.01 Long term (current) use of anticoagulants (principal)

== ENCOUNTER → 2024-07-06 | Outpatient (REF) | payer OTHER, MEDICAID ==
[2024-07-06 17:09] LABS: INR 1.19; PROTHROMBIN TIME 14.7 SECONDS (12.5-14.5)
== END ==
LOC: M SFHCLERA 15:09
PROVIDERS: ATTEND Family Medicine
DX: Z79.01 Long term (current) use of anticoagulants (principal)

== ENCOUNTER → 2024-07-20 | Outpatient (REF) | payer OTHER, MEDICAID ==
[2024-07-20 16:50] LABS: INR 1.44; PROTHROMBIN TIME 17.1 SECONDS (12.5-14.5)
== END ==
LOC: M SFHCLERA 13:32
PROVIDERS: ATTEND Family Medicine
DX: Z79.01 Long term (current) use of anticoagulants (principal)

== ENCOUNTER → 2024-08-17 | Outpatient (REF) | payer OTHER, MEDICAID ==
[2024-08-17 10:36] LABS: INR 1.57; PROTHROMBIN TIME 18.2 SECONDS (12.5-14.5)
[2024-08-17 10:48] LABS: BASO % 0.4 % (0.0-1.0); EOS # 0.2 10^3/uL (0.0-0.5); EOS % 2.2 % (0.0-3.0); HEMATOCRIT 41.6 % (36.0-47.0); HEMOGLOBIN 13.5 g/dl (12.0-15.5); LYMPH # 2.7 10^3/uL (1.5-5.0); LYMPH % 38.9 % (24.0-44.0); MEAN CORPUSCULAR HEMOGLOBIN 30.3 pg (27.0-33.0); MEAN CORPUSCULAR HGB CONC 32.5 g/dl (32.0-36.5); MEAN CORPUSCULAR VOLUME 93.5 fl (80.0-96.0); MONO # 0.8 10^3/uL (0.0-0.8); MONO % 11.1 % (2.0-8.0); NEUTROPHILS # 3.2 10^3/uL (1.5-8.5); NEUTROPHILS % 47.1 % (36.0-66.0); PLATELET COUNT, AUTOMATED 141 10^3/uL (150-450); RED BLOOD COUNT 4.45 10^6/uL (4.00-5.40); WHITE BLOOD COUNT 6.9 10^3/uL (4.0-10.0)
[2024-08-17 11:05] LABS: HEMOGLOBIN A1c 6.1 % (4.0-6.0)
[2024-08-17 11:07] LABS: ALBUMIN 3.8 G/DL (3.2-5.2); ALKALINE PHOSPHATASE 126 U/L (46-116); ALT/SGPT 22 U/L (7.0-40); AST/SGOT 21 U/L (<34); BILIRUBIN,TOTAL 0.4 MG/DL (0.3-1.2); BLOOD UREA NITROGEN 17 MG/DL (9-23); CALCIUM LEVEL 9.4 MG/DL (8.3-10.6); CARBON DIOXIDE LEVEL 32 MMOL/L (20-31); CHLORIDE LEVEL 104 MMOL/L (98-107); CHOLESTEROL LEVEL 168 MG/DL (<200); CHOLESTEROL RISK RATIO 2.28 (<5); CREATININE FOR GFR 0.85 MG/DL (0.55-1.30); GLOMERULAR FILTRATION RATE > 60.0 (>45); GLUCOSE, FASTING 96 MG/DL (74-106); HDL CHOLESTEROL 73.4 MG/DL (>40); LDL CHOLESTEROL 78.6 MG/DL (<100); NON-HDL-C 94.6 MG/DL; SODIUM LEVEL 139 MMOL/L (136-145); TOTAL PROTEIN 6.5 G/DL (5.7-8.2); TRIGLYCERIDES LEVEL 80 MG/DL (<150)
== END ==
LOC: M LAB REF 10:01
PROVIDERS: ATTEND Family Medicine
DX: E78.5 Hyperlipidemia, unspecified (principal); F01.50 Vascular dementia, unspecified severity, without behavioral disturbance, psychotic disturbance, mood disturbance, and anxiety; I09.9 Rheumatic heart disease, unspecified; Z79.01 Long term (current) use of anticoagulants; E11.69 Type 2 diabetes mellitus with other specified complication; E11.51 Type 2 diabetes mellitus with diabetic peripheral angiopathy without gangrene; I69.898 Other sequelae of other cerebrovascular disease; Z51.89 Encounter for other specified aftercare

== ENCOUNTER → 2024-08-19 | Outpatient (REF) | payer OTHER, MEDICAID ==
[2024-08-19 17:59] LABS: CREATININE, URINE 75.5 MG/DL; MALB URINE SIEMENS < 3.0 MG/L; MAU/CREAT RATIO 3.9 MCG/MG (0.0-30.0)
== END ==
LOC: M LAB REF 17:04
PROVIDERS: ATTEND Family Medicine
DX: E11.69 Type 2 diabetes mellitus with other specified complication (principal)

== ENCOUNTER → 2024-09-07 | Outpatient (REF) | payer OTHER, MEDICAID ==
[~2024-09-07] MED LIST changes: +IBAN150T10 PO; -IBAN150T6 PO
[2024-09-07 17:05] LABS: INR 2.24; PROTHROMBIN TIME 24.9 SECONDS (12.5-14.5)
== END ==
LOC: M SFHCLERA 12:52
PROVIDERS: ATTEND Family Medicine
DX: Z79.01 Long term (current) use of anticoagulants (principal)

== ENCOUNTER → 2024-09-21 | Outpatient (REF) | payer OTHER, MEDICAID ==
[2024-09-21 17:00] LABS: INR 2.64; PROTHROMBIN TIME 28.2 SECONDS (12.5-14.5)
== END ==
LOC: M SFHCLERA 13:17
PROVIDERS: ATTEND Family Medicine
DX: Z79.01 Long term (current) use of anticoagulants (principal)

== ENCOUNTER → 2024-10-05 | Outpatient (REF) | payer OTHER, MEDICAID ==
[2024-10-05 16:49] LABS: INR 1.71; PROTHROMBIN TIME 20.3 SECONDS (12.5-14.5)
== END ==
LOC: M SFHCLERA 13:12
PROVIDERS: ATTEND Family Medicine
DX: Z79.01 Long term (current) use of anticoagulants (principal)

== ENCOUNTER → 2024-10-19 | Outpatient (REF) | payer OTHER, MEDICAID ==
[2024-10-19 15:56] LABS: INR 1.4; PROTHROMBIN TIME 17.4 SECONDS (12.5-14.5)
== END ==
LOC: M SFHCLERA 13:38
PROVIDERS: ATTEND Family Medicine
DX: Z79.01 Long term (current) use of anticoagulants (principal)

== ENCOUNTER → 2024-11-02 | Outpatient (REF) | payer OTHER, MEDICAID ==
[2024-11-02 17:25] LABS: INR 1.15
== END ==
LOC: M SFHCLERA 13:05
PROVIDERS: ATTEND Family Medicine
DX: Z79.01 Long term (current) use of anticoagulants (principal)

== ENCOUNTER → 2024-11-18 | Outpatient (REF) | payer OTHER, MEDICAID ==
[2024-11-18 17:09] LABS: INR 2.95; PROTHROMBIN TIME 30.6 SECONDS (12.5-14.5)
== END ==
LOC: M SFHCLERA 11:50
PROVIDERS: ATTEND Family Medicine
DX: Z79.01 Long term (current) use of anticoagulants (principal)

== ENCOUNTER → 2025-01-12 | Outpatient (CLI) | payer OTHER, MEDICAID, MEDICARE ==
[2025-01-12 14:15] LABS: BASO % 0.3 % (0.0-1.0); EOS # 0.1 10^3/uL (0.0-0.5); EOS % 0.6 % (0.0-3.0); HEMATOCRIT 44.5 % (36.0-47.0); HEMOGLOBIN 14.4 g/dl (12.0-15.5); LYMPH # 1.4 10^3/uL (1.5-5.0); LYMPH % 15.4 % (24.0-44.0); MEAN CORPUSCULAR HGB CONC 32.4 g/dl (32.0-36.5); MEAN CORPUSCULAR VOLUME 95.9 fl (80.0-96.0); MONO # 0.7 10^3/uL (0.0-0.8); NEUTROPHILS # 7.1 10^3/uL (1.5-8.5); NEUTROPHILS % 76.5 % (36.0-66.0); PLATELET COUNT, AUTOMATED 172 10^3/uL (150-450); RED BLOOD COUNT 4.64 10^6/uL (4.00-5.40); WHITE BLOOD COUNT 9.3 10^3/uL (4.0-10.0)
[2025-01-12 14:19] LABS: INR 0.82; PROTHROMBIN TIME 11.7 SECONDS (12.5-14.5)
[2025-01-12 14:27] LABS: HEMOGLOBIN A1c 5.8 % (4.0-6.0)
[2025-01-12 15:19] LABS: ALBUMIN 3.7 G/DL (3.2-5.2); ALKALINE PHOSPHATASE 133 U/L (35-104); ALT/SGPT 42 U/L (7.0-40); AST/SGOT 30 U/L (<34); BILIRUBIN,TOTAL 0.7 MG/DL (0.3-1.2); BLOOD UREA NITROGEN 16 MG/DL (9-23); CARBON DIOXIDE LEVEL 31 MMOL/L (20-31); CHLORIDE LEVEL 99 MMOL/L (98-107); CREATININE FOR GFR 0.77 MG/DL (0.55-1.30); GLOMERULAR FILTRATION RATE > 60.0 (>45); GLUCOSE, FASTING 193 MG/DL (74-106); POTASSIUM SERUM 4.2 MMOL/L (3.5-5.1); SODIUM LEVEL 137 MMOL/L (136-145); TOTAL PROTEIN 6.6 G/DL (5.7-8.2)
== END ==
LOC: M WUC 12:13
PROVIDERS: ATTEND Family Medicine
DX: K66.1 Hemoperitoneum (principal); Z79.01 Long term (current) use of anticoagulants

== ENCOUNTER 2025-07-19 14:56 | Emergency (ER) | payer MEDICARE, MEDICAID ==
[~2025-07-19] VITALS: Ht 165.1 cm; Wt 54.5 kg
[2025-07-19] MEDS: IPRATROPIUM 0.5 MG/ALBUTEROL 2.5 MG INH SOL UD 3 ML NEB PRN (15:34)
[2025-07-19 16:01] LABS: VENOUS PARTIAL PRESSURE CO2 48.9 mmHg (38.0-50.0); VENOUS PARTIAL PRESSURE O2 40.9 mmHg (30.0-50.0); VENOUS PH 7.381 UNITS (7.330-7.430)
[2025-07-19 16:02] LABS: VENOUS BASE EXCESS 2.3 (-2.0-2.0); VENOUS TOTAL CO2 19.8 MMOL/L (24.0-28.0)
[2025-07-19 16:03] LABS: VENOUS O2 SATURATION 76.9 % (60.0-80.0)
[2025-07-19 16:04] LABS: VENOUS HCO3 28.3 MMOL/L (23.0-27.0)
[2025-07-19 16:28] LABS: ALT/SGPT 38.0 U/L (7.0-40); AST/SGOT 34.0 U/L (<34); CALCIUM LEVEL 10.0 MG/DL (8.3-10.6); CARBON DIOXIDE LEVEL 32.0 MMOL/L (20-31); CHLORIDE LEVEL 99.0 MMOL/L (98-107); CREATININE FOR GFR 0.77 MG/DL (0.55-1.30); GLOMERULAR FILTRATION RATE 82.9 (>39); POTASSIUM SERUM 4.1 MMOL/L (3.5-5.1); SODIUM LEVEL 137.0 MMOL/L (136-145)
[2025-07-19] MEDS ORDERED: ISOVUE-370 76% 100 ML VIAL As Ordered ONE (16:50)
[2025-07-19] MEDS ORDERED: PANT40TA29 PO (17:02)
[2025-07-19] MEDS ORDERED: XARE20TA PO (17:02)
[2025-07-19] MEDS ORDERED: METO1TAB87 PO (17:03)
[2025-07-19] MEDS ORDERED: HOME MED LIST COMPLETE! XX SCH (17:05)
[2025-07-19 17:37] LABS: INR 0.89
[2025-07-19 17:54] LABS: BASO # 0.0 10^3/uL (0.0-0.2); BASO % 0.2 % (0.0-1.0); EOS # 0.0 10^3/uL (0.0-0.5); EOS % 0.2 % (0.0-3.0); LYMPH # 0.7 10^3/uL (1.5-5.0); LYMPH % 4.5 % (24.0-44.0); MONO # 1.2 10^3/uL (0.0-0.8); MONO % 7.6 % (2.0-8.0); NEUTROPHILS # 14.1 10^3/uL (1.5-8.5); NEUTROPHILS % 87.1 % (36.0-66.0); PLATELET COUNT, AUTOMATED 117 10^3/uL (150-450)
[2025-07-19 18:01] VITALS: BP 140/85
[2025-07-19] MEDS: FUROSEMIDE 40 MG/4 ML VIAL IV ONE (18:01)
[2025-07-19] MEDS: LIDOCAINE 2% 5 ML JELLY UROJET TOP ONE (18:35)
[2025-07-19] MEDS ORDERED: FENTANYL DRIP LOCK BOX KEY 1 EACH XX PRN (18:35)
[2025-07-19] MEDS: MIDAZOLAM INJ 2 MG/2 ML VIAL IV STA (18:36)
[2025-07-19] MEDS: MIDAZOLAM 100MG/100ML-0.9%NACL 100 MG in IV 1 EA IV SCH (18:41)
[2025-07-19] MEDS: ETOMIDATE 20 MG/10 ML VIAL IV STA (18:42)
[2025-07-19] MEDS: SUCCINYLCHOLINE INJ 200MG/10ML VIAL IV STA (18:43)
[2025-07-19] MEDS: fentaNYL CITRATE/NaCl 1,000 MCG in IV 1 EA IV SCH (18:45)
[2025-07-19] MEDS: NS (Normal Saline) 0.9% 1,000 ML IV ONE ×2 (19:00→21:26)
[2025-07-19 19:31] LABS: ABG BASE EXCESS -3.4 (-2.0-2.0); ABG HCO3 25.1 MMOL/L (22.0-26.0); ABG O2 SATURATION 99.6 % (95.0-99.0); ABG PARTIAL PRESSURE O2 250.4 mmHg (75.0-100.0); ABG STANDARD HCO3 21.7 MMOL/L. (22.0-26.0); ABG TOTAL CO2 26.9 MMOL/L (23.0-31.0)
[2025-07-19 19:33] LABS: ABG PARTIAL PRESSURE CO2 60.0 mmHg (35.0-45.0); ABG pH (ARTERIAL) 7.239 UNITS (7.350-7.450)
[2025-07-19] MEDS: cefTRIAXone SOD 1 GM in DEXTROSE 5% (D5W) ADV/MINI-BAG 50 ML IV ONE (21:20)
[2025-07-19] MEDS: ENOXAPARIN 60 MG/0.6 ML SYRINGE (J1650 PER 10MG) SC ONE (21:26)
[2025-07-19] MEDS: AZITHROMYCIN INJ 500 MG, VIAL MATE ADAPTER 1 EACH in NS 250 ML IV ONE (21:27)
[2025-07-19] MEDS: NS (Normal Saline) 0.9% 1,000 ML IV SCH (22:19)
[2025-07-19] MEDS: NOREPINEPHRINE 4MG IN D5 250ML 4 MG in IV 1 EA IV SCH (22:22)
[2025-07-20 00:33] LABS: ABG BASE EXCESS -3.2 (-2.0-2.0); ABG HCO3 21.7 MMOL/L (22.0-26.0); ABG O2 SATURATION 96.4 % (95.0-99.0); ABG PARTIAL PRESSURE CO2 38.4 mmHg (35.0-45.0); ABG PARTIAL PRESSURE O2 93.8 mmHg (75.0-100.0); ABG STANDARD HCO3 21.8 MMOL/L. (22.0-26.0); ABG TOTAL CO2 22.8 MMOL/L (23.0-31.0); ABG pH (ARTERIAL) 7.369 UNITS (7.350-7.450)
[2025-07-20] MEDS: ASPIRIN 300 MG SUPP PR ONE (01:54)
[2025-07-20] MEDS ORDERED: HEPARIN SOD 5000 UNITS/ML 1 ML VIAL/SYRINGE IV PRN (06:55)
[2025-07-20 07:48] VITALS: BP 101/66
[2025-07-20 07:50] VITALS: TEMP 97.9; O2SAT 98
[2025-07-20] MEDS ORDERED: HEPARIN DRIP 25,000 UNITS in IV 1 EA IV SCH (08:00)
== END 2025-07-20 08:09 | disposition short-term general hospital (02) ==
LOC: M ED 14:56 → EDBD 14:56 → M ED 07-20 08:09
DX: I21.4 Non-ST elevation (NSTEMI) myocardial infarction (principal); J96.00 Acute respiratory failure, unspecified whether with hypoxia or hypercapnia; I26.99 Other pulmonary embolism without acute cor pulmonale; J18.9 Pneumonia, unspecified organism; I95.9 Hypotension, unspecified; E11.9 Type 2 diabetes mellitus without complications; I10 Essential (primary) hypertension; I05.0 Rheumatic mitral stenosis; Z86.73 Personal history of transient ischemic attack (TIA), and cerebral infarction without residual deficits; Z79.01 Long term (current) use of anticoagulants; F17.200 Nicotine dependence, unspecified, uncomplicated; Z79.82 Long term (current) use of aspirin; Z79.84 Long term (current) use of oral hypoglycemic drugs; Z79.899 Other long term (current) drug therapy; Z91.010 Allergy to peanuts
CPT/HCPCS: 36600; 51702; 71045; 71275; 80048; 80076; 82803; 83605; 83880; 84145; 84443; 84484; 85025; 85610; 87040; 87486; 87581; 87633; 87798; 93005; 93041; 93306; 94640; 94760; 96365; 96366; 96368; 96372; 96375; 99291; 99292; G0463; J0330; J0456; J0696; J1650; J1938; J2250; J2251; J2919; J3010; Q9967